=== PATIENT | male | born 1990 | race Two or more races ===

== ENCOUNTER 2018-11-14 19:30 | Emergency (ER) | payer SELFPAY ==
[~2018-11-14] VITALS: Ht 157.5 cm; Wt 56.0 kg
[2018-11-14] MEDS ORDERED: ACETAMINOPHEN 325MG TABLET PO ONE (21:45)
[2018-11-14] MEDS ORDERED: ONDANSETRON 4MG ODT PO ONE (21:45)
[2018-11-15 00:37] VITALS: BP 118/75
== END 2018-11-15 00:40 | disposition home or self-care (01) ==
LOC: ER 19:30
DX: R51 Headache (principal)
CPT/HCPCS: 70450; 99284; Q0162